=== PATIENT | male | born 1985 | race Caucasian/White ===

== ENCOUNTER 2024-11-19 11:54 | Emergency (ER) | payer MEDICAID, SELFPAY ==
[2024-11-19 12:24] VITALS: BP 156/93; PULSE 85; RESP 15; TEMP 36.9; O2SAT 100; BMI 20.2
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
--- NOTE | 2024-11-19 12:28 | XR_ITS ---
PROCEDURE INFORMATION: Exam: XR Chest Exam date and time: 11/19/2024 12:23 PM Age: 39 years old Clinical indication: Pain; Chest pressure; Additional info: SOA, chest pain TECHNIQUE: Imaging protocol: Radiologic exam of the chest. Views: 2 views. COMPARISON: No relevant prior studies available. FINDINGS: Lungs: Hyperaeration. Patchy airspace opacity in the right base. May be early pneumonia. Left lung clear. Pleural spaces: Unremarkable. No pleural effusion. No pneumothorax. Heart/Mediastinum: Unremarkable. No cardiomegaly. Bones/joints: Unremarkable. IMPRESSION: Patchy airspace opacity in the right base. May be early pneumonia.
--- NOTE | 2024-11-19 12:28 | ECG_ITS ---
APPROVED REPORT Exam: Resting ECG HR:72 bpm ECG Measurements Heart Rate 72 AXES MN 141 P 83 QRSd 83 QRS 81 QT 341 T 83 QTc 366 Conclusion SINUS RHYTHM POSSIBLE RIGHT ATRIAL ENLARGEMENT [0.25mV P-WAVE] No STEMI Electronically signed by : VAHE HEIN, 11/20/2024 05:55:28
--- NOTE | 2024-11-19 12:32 | PC.NURSE ---
pt to CT @ this time
--- NOTE | 2024-11-19 12:37 | PC.NURSE ---
pt back fro CT @ this time
[2024-11-19 12:58] LABS: Basophils % 0.4 % (0.1-2.0); Eosinophils # 0.1 K/mm3 (0.0-0.4); Eosinophils % 1.2 % (0.1-12.0); Hematocrit 50.9 % (42.0-52.0); Hemoglobin 17.2 g/dL (14.1-18.0); Lymphocytes # 2.6 K/mm3 (0.7-4.5); Lymphocytes % 28.1 % (10-50); MANUAL DIFFERENTIAL MANUAL DIFFERENTIAL (MANUAL DIFF); Mean Corpuscular HGB Conc 33.8 g/dL (31.8-35.4); Mean Corpuscular Hemoglobin 29.9 pg (27.0-31.2); Mean Corpuscular Volume 88.4 fl (80-94); Mean Platelet Volume 10.6 fl (7.4-10.4); Monocytes % 10.2 % (1.7-9.3); Neutrophils # 5.6 K/mm3 (1.8-7.8); Neutrophils % 59.7 % (37.0-80.0); Platelet Count 273 K/mm3 (142-424); Red Blood Count 5.76 M/mm3 (4.60-6.20); Red Cell Distribution Width 13.1 % (11.5-17.5); White Blood Count 9.4 K/mm3 (4.8-10.8)
[2024-11-19 13:03] LABS: Albumin Level 4.7 g/dl (3.5-5.0); Chloride 107 mmol/L (98-107)
[2024-11-19 13:04] LABS: Potassium 4.4 mmoL/L (3.5-5.1); Sodium 139 mmol/L (136-145)
[2024-11-19 13:06] LABS: Alanine Aminotransferase 23 U/L (12-78); Anion Gap 11.4 mEq/L (5-15); Aspartate Amino Transferase 32 U/L (17-59); Blood Urea Nitrogen 14 mg/dl (9-20); Carbon Dioxide 25 mmol/L (22.0-30.0); Creatinine Clearance Estimated 107 mL/min (50-200); Estimated Glomerular Filt Rate 93 ml/min (>60); GFR (African American) 113 ML/MIN (>60)
[2024-11-19 13:07] LABS: Albumin/Globulin Ratio 1.5 (1.1-1.8); Alkaline Phosphatase 88 U/L (38-126); Bilirubin,Total 1.2 mg/dl (0.2-1.3); Calcium 9.7 mg/dl (8.4-10.2); Globulin 3.1 g/dL (1.3-3.2); Glucose 93 mg/dl (74-100); Total Protein,Serum 7.8 g/dl (6.3-8.2)
[2024-11-19 13:25] LABS: Troponin I < 0.01 ng/ml (0.00-0.034)
[2024-11-19 13:49] VITALS: BP 141/84; PULSE 75; RESP 16; TEMP 36.7; O2SAT 98
[2024-11-19 15:09] LABS: Eosinophils % 1 % (0-3); Lymphocytes % 37 % (10-50); Monocytes % 10 % (2-9); Neutrophils % 52 % (42-76); Platelet Estimate Normal; RBC Morphology Normal
[2024-11-19 15:10] LABS: Total Cells Counted 100
== END 2024-11-19 13:50 | disposition home or self-care (01) ==
PROVIDERS: Nurse Practitioner Family; Emergency Provider Emergency Medicine; PCP Family Medicine
DX: J18.9 Pneumonia, unspecified organism (principal); R06.02 Shortness of breath; R07.81 Pleurodynia; Z72.0 Tobacco use
CPT/HCPCS: 71046; 80053; 84484; 85007; 85014; 85018; 85048; 85049; 93005; 99284